=== PATIENT | female | born 1980 | race African-American/Black ===

== ENCOUNTER 2022-09-06 01:16 | Emergency (ER) | payer MEDICAID ==
[~2022-09-06] VITALS: Ht 170.2 cm; Wt 61.2 kg
[2022-09-06 01:35] VITALS: BP_SYST 162; PULSE 71; RESP 16; TEMP 97.2; O2SAT 100
[2022-09-06] MEDS ORDERED: ACETAMINOPHEN 325 MG TABLET PO ONE (01:45)
[2022-09-06 01:56] LABS: BILIRUBIN,URINE NEGATIVE (NEGATIVE); BLOOD, URINE 1+ (NEGATIVE); CLARITY/URINE CLEAR (CLEAR); COLOR,URINE YELLOW (YELLOW); GLUCOSE,URINE NEGATIVE (NEGATIVE); KETONES,URINE NEGATIVE (NEGATIVE); LEUKOCYTE ESTERASE ,URINE NEGATIVE (NEGATIVE); NITRITE, URINE NEGATIVE (NEGATIVE); PROTEIN URINE NEGATIVE (NEGATIVE); UROBILINOGEN,URINE 0.2 (0.2-1.0)
[2022-09-06 01:59] LABS: BASOPHILS % (AUTO) 0.3 % (0.0-2.0); EOSINOPHILS # (AUTO) 0.1 K/uL (0.0-0.4); EOSINOPHILS % (AUTO) 0.8 % (0.0-4.0); HEMATOCRIT 32.6 % (36-48); HEMOGLOBIN 11.7 g/dL (12.0-16.0); LYMPHOCYTES # (AUTO) 2.5 K/uL (1.0-5.5); LYMPHOCYTES % (AUTO) 24.7 % (20.5-51.5); MEAN CORPUSCULAR HEMOGLOBIN 30 pg (27-31); MEAN CORPUSCULAR HGB CONC 36 % (32-36); MEAN CORPUSCULAR VOLUME 83 fL (79.0-98.0); MONOCYTES # (AUTO) 0.9 K/uL (0.0-1.0); MONOCYTES % (AUTO) 8.6 % (1.7-9.3); NEUTROPHILS # (AUTO) 6.5 K/uL (1.8-7.7); NEUTROPHILS % (AUTO) 65.6 % (40.0-70.0); PLATELET COUNT (AUTO) 229 K/uL (130-430); RED BLOOD CELL COUNT(AUTO) 3.94 MIL/uL (4.2-6.2); RED CELL DISTRIBUTION WIDTH 13.8 % (9.0-15.0)
[2022-09-06 02:11] LABS: CREATININE 0.96 mg/dL (0.55-1.30)
[2022-09-06 02:26] LABS: BACTERIA,URINE RARE /HPF (None Seen); RBC,URINE 0-3 /HPF (0-3)
[2022-09-06 02:37] LABS: ALBUMIN 3.8 g/dL (3.4-4.8); TOTAL BILIRUBIN 0.7 mg/dL (0.0-1.0)
[2022-09-06] MEDS ORDERED: RHO(D) IMMUNE GLOBULIN/MALTOSE 1500 UNITS/1.3 ML (WINHRO) INJ ONE (03:15)
[2022-09-06] MEDS ORDERED: ACET-2634 PO (04:20)
[2022-09-06] MEDS ORDERED: CEPH250C PO (04:20)
[2022-09-06] MEDS ORDERED: IBUPROFEN 800 MG TABLET PO ONE (07:30)
[2022-09-06 09:17] VITALS: BP_SYST 124; PULSE 59; RESP 16; TEMP 97.4; O2SAT 99
== END 2022-09-06 09:08 | disposition home or self-care (01) ==
LOC: SED 01:16
DX: O03.9 Complete or unspecified spontaneous abortion without complication (principal); O23.91 Unspecified genitourinary tract infection in pregnancy, first trimester; Z3A.09 9 weeks gestation of pregnancy; Z79.899 Other long term (current) drug therapy
CPT/HCPCS: 99285; 76856; 80053; 81000; 84702; 85025; 86900; 86901; 36415; 81025; 96372; J2792; J2790